=== PATIENT | female | born 1940 | race Caucasian/White ===

== ENCOUNTER 2018-05-13 09:03 | Outpatient (RCR) | payer MEDICARE, OTHER | END 2018-05-22 14:04 | LOC: OPPGERO 09:03 | DX: F33.1 Major depressive disorder, recurrent, moderate (principal); F41.9 Anxiety disorder, unspecified; E87.1 Hypo-osmolality and hyponatremia; E03.9 Hypothyroidism, unspecified; E78.5 Hyperlipidemia, unspecified; K21.9 Gastro-esophageal reflux disease without esophagitis; J44.9 Chronic obstructive pulmonary disease, unspecified; I12.9 Hypertensive chronic kidney disease with stage 1 through stage 4 chronic kidney disease, or unspecified chronic kidney disease; N18.3 Chronic kidney disease, stage 3 (moderate); N17.9 Acute kidney failure, unspecified; D63.1 Anemia in chronic kidney disease; R55 Syncope and collapse; R26.2 Difficulty in walking, not elsewhere classified; M62.81 Muscle weakness (generalized); I70.1 Atherosclerosis of renal artery; K64.9 Unspecified hemorrhoids; L24.0 Irritant contact dermatitis due to detergents; Z79.2 Long term (current) use of antibiotics; Z79.82 Long term (current) use of aspirin; Z79.899 Other long term (current) drug therapy ==